=== PATIENT | male | born 1975 | race Caucasian/White ===

== ENCOUNTER 2024-05-25 13:46 | Emergency (ER) | payer OTHER ==
[~2024-05-25] VITALS: Ht 185.4 cm; Wt 112.3 kg
[2024-05-25] MEDS ORDERED: COLA100C5 PO (18:20)
[2024-05-25] MEDS: MAGNESIUM CITRATE 300ML BTL PO ONE (18:24)
[2024-05-25 18:28] VITALS: BP 154/87; TEMP 97.8; O2SAT 98
== END 2024-05-25 18:30 | disposition home or self-care (01) ==
LOC: M ED 13:46
DX: R19.7 Diarrhea, unspecified (principal)